=== PATIENT | female | born 1935 | race Caucasian/White ===

== ENCOUNTER 2020-06-11 15:56 | Observation (INO) | payer MEDICARE ==
[~2020-06-11] VITALS: Ht 157.5 cm; Wt 54.0 kg
[2020-06-11 17:11] LABS: HEMOGLOBIN 10.8 gm/dl (12.3-15.3); RED BLOOD COUNT 3.36 M/UL (4.00-5.10); WHITE BLOOD COUNT 7.4 K/UL (4.5-11.0)
[2020-06-12] MEDS ORDERED: PRAVASTATIN SOD10 MG PO (00:58)
[2020-06-12] MEDS ORDERED: METOPROLOL SUCC50 MG PO (00:58)
[2020-06-12] MEDS ORDERED: SYNTHROID100 MCG PO (00:58)
[2020-06-12] MEDS ORDERED: COZAAR 25MG TAB25 MG PO (00:59)
[2020-06-12] MEDS ORDERED: ASPIRIN81 MG PO (01:01)
[2020-06-12] MEDS ORDERED: ISOSORBIDE MONO30 MG PO (01:03)
[2020-06-12] MEDS ORDERED: FUROSEMIDE40 MG PO (01:04)
[2020-06-12] MEDS ORDERED: ELIQUIS 5 MG TAB5 MG PO (01:14)
[2020-06-12 06:03] LABS: HEMOGLOBIN 9.8 gm/dl (12.3-15.3); RED BLOOD COUNT 3.07 M/UL (4.00-5.10)
[2020-06-12 06:04] LABS: WHITE BLOOD COUNT 5.2 K/UL (4.5-11.0)
[2020-06-13 05:08] LABS: HEMOGLOBIN 9.2 gm/dl (12.3-15.3); RED BLOOD COUNT 2.98 M/UL (4.00-5.10); WHITE BLOOD COUNT 4.4 K/UL (4.5-11.0)
[2020-06-13] MEDS ORDERED: ELIQUIS 2.5 MG2.5 MG PO (08:27)
[2020-06-13] MEDS ORDERED: ISOSORBIDE MONO60 MG PO (08:27)
[2020-06-13] MEDS ORDERED: AUGMENTIN 875-1 EACH PO (08:28)
--- NOTE | 2020-06-13 10:03 | NUR ---
EDUCATED PATIENT AND FAMILY MEMBERS WHO ARE PRIMARY CARE GIVERS FOR THE PAITENT ABOUT MEDICATION CHANGES AND DOSAGE CHANGES WELL ON CELLULITIS AND CAT BITES. ANSWERED QUESTIONS AND VERIFIDED UNDERSTANDING.
== END 2020-06-13 10:17 | disposition home or self-care (01) ==
LOC: ER1 15:56 → M/S 18:29 → CDU 18:29 → M/S 22:22
PROVIDERS: Preventive Medicine Occupational Medicine; ADMIT Internal Medicine
DX: R07.89 Other chest pain (principal); L03.115 Cellulitis of right lower limb; S81.851A Open bite, right lower leg, initial encounter; I11.0 Hypertensive heart disease with heart failure; I50.9 Heart failure, unspecified; I25.10 Atherosclerotic heart disease of native coronary artery without angina pectoris; I48.21 Permanent atrial fibrillation; I48.0 Paroxysmal atrial fibrillation; E03.9 Hypothyroidism, unspecified; R60.9 Edema, unspecified; E78.5 Hyperlipidemia, unspecified; D64.89 Other specified anemias; Z95.5 Presence of coronary angioplasty implant and graft; Z79.01 Long term (current) use of anticoagulants; Z79.82 Long term (current) use of aspirin; Z79.2 Long term (current) use of antibiotics; Z79.899 Other long term (current) drug therapy; Z91.14 Patient's other noncompliance with medication regimen; Z20.822 Contact with and (suspected) exposure to COVID-19; W55.01XA Bitten by cat, initial encounter
CPT/HCPCS: 0240U; 36415; 36600; 51702; 71045; 80048; 80053; 81001; 82550; 82553; 82803; 83605; 83690; 83874; 83880; 84484; 85025; 85652; 86140; 87040; 87070; 87086; 87205; 93005; 96365; 96374; 96375; 96376; 99285; G0378; J0295

== ENCOUNTER 2020-11-20 08:42 | Emergency (ER) | payer MEDICARE ==
[~2020-11-20 08:42] MED LIST: ASPIRIN81 MG PO; AUGMENTIN 875-1 EACH PO; COZAAR 25MG TAB25 MG PO; ELIQUIS 2.5 MG2.5 MG PO; ELIQUIS 5 MG TAB5 MG PO; FUROSEMIDE40 MG PO; ISOSORBIDE MONO30 MG PO; ISOSORBIDE MONO60 MG PO; METOPROLOL SUCC50 MG PO; PRAVASTATIN SOD10 MG PO; SYNTHROID100 MCG PO
[2020-11-20 09:56] LABS: HEMOGLOBIN 12.6 gm/dl (12.3-15.3); RED BLOOD COUNT 3.84 M/UL (4.00-5.10); WHITE BLOOD COUNT 6.8 K/UL (4.5-11.0)
[2020-11-20 10:47] LABS: BUN/CREATININE RATIO 22 (0-10)
== END 2020-11-20 17:50 | disposition home or self-care (01) ==
LOC: ER1 08:42
PROVIDERS: Physician Assistant
DX: R07.9 Chest pain, unspecified (principal); I11.0 Hypertensive heart disease with heart failure; I48.91 Unspecified atrial fibrillation; I25.10 Atherosclerotic heart disease of native coronary artery without angina pectoris; I50.9 Heart failure, unspecified; Z90.49 Acquired absence of other specified parts of digestive tract; Z79.01 Long term (current) use of anticoagulants; Z20.822 Contact with and (suspected) exposure to COVID-19
CPT/HCPCS: 71045; 80053; 82550; 82553; 83874; 84484; 85025; 85379; 93005; 96374; 99285; J2405; Q9967; U0002